=== PATIENT | female | born 1980 | race Caucasian/White ===

== ENCOUNTER → 2017-01-04 | Outpatient (CLI) | payer OTHER ==
[~2017-01-04] MED LIST: ADVAIR 250-501 EACH IH; ALBUTEROL MININEB NEB; ALBUTEROL17 GM INH; ALLERGY SHOTS SQ; AMITRYPTYLINE PO; AUGMENTIN875 MG PO; BIRTH CONTROL PILL PO; FLONASE16 GM; IMITREX PO; PREDNISONE PO; VALTREX500 MG PO; ZYRTEC10 M2 PO
--- NOTE | ~2017-01-04 | MR32 ---
[facility] A Service of [facility] & [facility] RADIOLOGY TEXT RESULTS PATIENT: YUE ORTEGA LOCATION: [facility] : 78 UNIT #: [id number] AGE: [address]: Giovani Correia MD SEX: F ORDER DR: [id number] [address] [address] [id number] O MR#: [id number] Acc #: [id number] NAME: YUE ORTEGA : 1980 SEX: F STUDY DATE/TIME: 01/04/2017 13:58 UNIT: [facility] ROOM: STUDY DESCRIPTION: MR Cervical Wo Contrast Attending Physician: Giovani Correia M.D. Referring Physician: Giovani Correia M.D. Ordering Physician: Giovani Correia M.D. Primary Care Physician: No Primary Care Physician MRI CENTER REPORT This report is preliminary unless electronic signature is present. EXAM Cervical spine MRI without. HISTORY Neck pain with bilateral radiculopathy since 2010, right worse and progressively worsening for a year. Decreased range of motion, increased stiffness. History sheet also indicates multiple sclerosis, though the patient's complaints are that of cervical radiculopathy. Study performed without contrast per request. TECHNIQUE MRI of the cervical spine was performed without contrast using routine 1.5T wide-bore imaging technique. FINDINGS Sagittal alignment is normal. Bone marrow signal intensity is normal. Mild multiple level cervical intervertebral disc desiccation. 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 It is about 8 mm in dimension, similar to slightly larger in comparison to a brain MRI from 08/21/2015. No Chiari-I malformation. Cervical cord is normal in size and signal intensity. At C2-3, no significant abnormality. At C3-4, no significant abnormality. At C4-5, minor concentric disc bulge more prominent in a right paramedian location. Mild right-side facet degenerative change and foraminal narrowing. C5-6, there is a focal central disc protrusion/extrusion superimposed upon mild concentric disc bulge. There is mild flattening of the anterior cord and mild canal stenosis. No significant foraminal impingement. Disc STS. [facility] A Service of [facility] RADIOLOGY TEXT RESULTS PATIENT: YUE ORTEGA LOCATION: [facility] : 78 UNIT #: [id number] AGE: [address]: Giovani Correia MD SEX: F ORDER DR: material remains contiguous with the disc and extending slightly above and below the level of the disc. C6-7, minor concentric disc bulge. No canal or foraminal impingement. C7-T1, no significant abnormality. IMPRESSION 1. Cervical degenerative changes relatively mild, detailed above, most significant appearing radiographically at the C5-6 level where there is mild cord flattening and canal stenosis. 2. There is nothing to suggest demyelinating disease involving the cervical cord. 3. 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 Dictated by... Bhargavi Meyer M.D. THIS IS AN ELECTRONICALLY VERIFIED REPORT Bhargavi Meyer M.D. at 01/05/2017 12:14 PM MIGUELITO/elizabeth TD: 01/05/2017 09:16 JOB #: [id number] MRI CENTER REPORT
--- NOTE | ~2017-01-04 | MR18 ---
[facility] A Service of [facility] & [facility] RADIOLOGY TEXT RESULTS PATIENT: YUE ORTEGA LOCATION: [facility] : 78 UNIT #: [id number] AGE: [address]: Giovani Correia MD SEX: F ORDER DR: [id number] [address] [address] [id number] O MR#: [id number] Acc #: [id number] NAME: YUE ORTEGA : 1980 SEX: F STUDY DATE/TIME: 01/04/2017 13:25 UNIT: [facility] ROOM: STUDY DESCRIPTION: MR Brain Wo Contrast Attending Physician: Giovani Correia M.D. Referring Physician: Giovani Correia M.D. Ordering Physician: Giovani Correia M.D. Primary Care Physician: Primary Care Physician No MRI CENTER REPORT This report is preliminary unless electronic signature is present. EXAM MRI of the brain with and without, 01/04/2017 HISTORY Multiple sclerosis followup. COMMENT MRI of the brain was performed without contrast using routine 1.5T wide-bore imaging technique. Lack of contrast limits evaluation for active demyelination. Comparison from 08/21/2015. There is no MRI evidence for a recent ischemic insult on the diffusion series. 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 The tonsils are not pointed however. The ectopia measures about 4 mm. This is not significantly changed from previous. The ventricles are prominent which is nonspecific and could reflect some remote white matter loss or developmental variant. There is no hydrocephalus. There is no extraaxial fluid collection. The major intracranial flow voids are maintained. There is partial opacification of left posterior ethmoid air cells. The mastoid air cells are clear. There is no MRI evidence for intracranial hemorrhage. There is no white matter disease appreciated. There is no imaging evidence for demyelinating disease. The appearance of the brain is essentially stable on comparison with prior study. IMPRESSION 1. No significant interval change in the appearance of the brain since 08/21/2015. Again the ventricular system is prominent but unchanged and there is no white matter signal abnormality. There is no imaging evidence for demyelinating disease. Study performed without contrast as per request. 2. Paranasal sinus disease with opacification of the left posterior ethmoid air cell but no sinus air-fluid level. [facility] A Service of [facility] RADIOLOGY TEXT RESULTS PATIENT: YUE ORTEGA LOCATION: [facility] : 78 UNIT #: [id number] AGE: [address]: Giovani Correia MD SEX: F ORDER DR: 3. 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 If the patient's history is actually that of severe headache and if there is clinical concern for a symptomatic Chiari-I malformation, CSF flow study could be performed across the foramen magnum for further characterization. The history provided to me is multiple sclerosis but the history provided to the technologist is severe migraine headache. Please correlate with actual clinical history to determine the need for further imaging. Dictated by... Bhargavi Meyer M.D. THIS IS AN ELECTRONICALLY VERIFIED REPORT Bhargavi Meyer M.D. at 01/05/2017 7:35 AM MIGUELITO/solitario TD: 01/04/2017 22:20 JOB #: [id number] MRI CENTER REPORT
== END | disposition home or self-care (01) ==
LOC: SMRI 12:45
DX: M54.12 Radiculopathy, cervical region (principal); M54.6 Pain in thoracic spine; G35 Multiple sclerosis; M47.22 Other spondylosis with radiculopathy, cervical region; J32.8 Other chronic sinusitis; J34.89 Other specified disorders of nose and nasal sinuses; Q04.8 Other specified congenital malformations of brain; M48.02 Spinal stenosis, cervical region
CPT/HCPCS: 70551; 72141

== ENCOUNTER → 2017-01-05 | Outpatient (CLI) | payer OTHER ==
--- NOTE | ~2017-01-05 | MR176 ---
[facility] A Service of [facility] & [facility] RADIOLOGY TEXT RESULTS PATIENT: YUE ORTEGA LOCATION: [facility] : 78 UNIT #: [id number] AGE: [address]: Giovani Correia MD SEX: F ORDER DR: [id number] [address] [address] [id number] O MR#: [id number] Acc #: [id number] NAME: YUE ORTEGA : 1980 SEX: F STUDY DATE/TIME: 01/05/2017 8:47 UNIT: [facility] ROOM: STUDY DESCRIPTION: MR Thoracic Wo Contrast Attending Physician: Giovani Correia M.D. Referring Physician: Giovani Correia M.D. Ordering Physician: Giovani Correia M.D. Primary Care Physician: No Primary Care Physician MRI CENTER REPORT This report is preliminary unless electronic signature is present. EXAM MRI of the thoracic spine without contrast dated 01/05/2017 COMPARISON STUDIES None HISTORY Neck pain and bilateral radiculopathy since 2010, worse on the right. It has been worsening in the last year. Decreased range of movement in the neck with increasing stiffness. TECHNIQUE Multisequence multiplanar imaging of the thoracic spine was obtained without contrast. FINDINGS Vertebral body heights and alignment are preserved. Intervertebral disc heights are intact. There is a fatty signal 1.8 cm large lesion in T11 vertebral body without any pathological fracture or extraosseous soft tissue component. Thoracic cord is within normal limits. Pre and paravertebral soft tissues do not demonstrate any significant abnormality. Mild bilateral facet hypertrophic changes are noted in the T9-10, T10-11 and to a lesser degree at T11-12 levels. No focal significant disc herniation, canal stenosis or neuroforaminal narrowing. Cord demonstrates expected course, caliber and signal. Pre and paravertebral soft tissues are unremarkable. IMPRESSION 1. Mild bilateral T9-10 and T10-11 facet hypertrophic changes are seen. 2. No focal significant disc herniation, canal stenosis or neuroforaminal narrowing. 3. Fatty signal 1.8 cm mass is seen in T11 vertebral body suggestive of STS. [facility] A Service of [facility] & [facility] RADIOLOGY TEXT RESULTS PATIENT: YUE ORTEGA LOCATION: [facility] : 78 UNIT #: [id number] AGE: [address]: Giovani Correia MD SEX: F ORDER DR: a hemangioma based on statistics. It has minimal edema within it suggestive of an atypical component, benign. Dictated by... Claudia Corcoran M.D. THIS IS AN ELECTRONICALLY VERIFIED REPORT Claudia Corcoran M.D. at 01/06/2017 3:40 PM CPR/jack TD: 01/05/2017 18:50 JOB #: [id number] MRI CENTER REPORT
== END | disposition home or self-care (01) ==
LOC: SMRI 08:39
DX: M54.12 Radiculopathy, cervical region (principal); M54.6 Pain in thoracic spine
CPT/HCPCS: 72146